=== PATIENT | male | born 2000 | race Caucasian/White ===

== ENCOUNTER 2019-12-11 20:58 | Emergency (ER) | payer OTHER, SELFPAY | END 2019-12-11 22:50 | disposition home or self-care (01) | LOC: ERS 20:58 | DX: J06.9 Acute upper respiratory infection, unspecified (principal); F17.210 Nicotine dependence, cigarettes, uncomplicated; Z71.6 Tobacco abuse counseling | CPT/HCPCS: 87804; 99406 ==

== ENCOUNTER 2021-08-20 11:54 | Emergency (ER) | payer SELFPAY | END 2021-08-20 13:28 | disposition home or self-care (01) | LOC: ERS 11:54 | DX: S90.02XA Contusion of left ankle, initial encounter (principal); F17.210 Nicotine dependence, cigarettes, uncomplicated; W22.8XXA Striking against or struck by other objects, initial encounter ==